=== PATIENT | male | born 1965 | race Caucasian/White ===

== ENCOUNTER 2021-03-01 12:17 | Emergency (ER) | payer BC ==
[~2021-03-01] VITALS: Ht 185.4 cm; Wt 116.0 kg
--- NOTE | 2021-03-01 12:47 | EKG ---
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
[2021-03-01 12:52] LABS: BASO # 0.1 x10^3/uL (0.0-0.2); BASO % 1 % (0-3); EOS # 0.3 x10^3/uL (0.0-0.7); EOS % 3 % (0-3); HEMATOCRIT 43.7 % (39.0-53.0); HEMOGLOBIN 15.2 g/dL (13.0-17.5); LYMPH % 33 % (24-48); MEAN CORPUSCULAR HEMOGLOBIN 30 pg (25-35); MEAN CORPUSCULAR HGB CONC 35 g/dL (31-37); MEAN CORPUSCULAR VOLUME 87 fL (79-100); MONO # 0.8 x10^3/uL (0.0-1.1); MONO % 9 % (0-9); NEUT % 54 % (31-73); PLATELET COUNT 348 x10^3/uL (140-400); RED CELL DISTRIBUTION WIDTH 13.3 % (11.5-14.5); WHITE BLOOD COUNT 9.2 x10^3/uL (4.0-11.0)
[2021-03-01 12:54] LABS: CREATININE 1.6 mg/dL (0.7-1.3); GFR 44.8; POTASSIUM 4.4 mmol/L (3.5-5.1)
--- NOTE | 2021-03-01 13:05 | PHYS DOC ---
Past History Past Medical History: Asthma Past Surgical History: Knee Replacement Smoking: Non-smoker Alcohol Use: Occasionally Drug Use: None General Adult EDM: Chief Complaint: DIZZY/LIGHT HEADED HPI: HPI: Patient is a 55-year-old male coming in for complaint of lightheadedness has been going on for several months. Patient states he has had a couple episodes over the past couple days have been worse. 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 Patient has a history of hypertension is taking lisinopril. Denies any chest pain or cough. States he is frequently diaphoretic at his baseline. Patient states that when it happened today at work he ate afterwards and said he felt slightly better. Has not had any Covid vaccines. Review of Systems: Review of Systems: All other systems within normal limits except for as noted in the HPI Allergies: Allergies: Allergies Coded Allergies Type Severity Reaction Last Updated Verified morphine Allergy Unknown 03/01/21 Yes Physical Exam: PE: Constitutional: Well developed, well nourished, no acute distress, non-toxic appearance. [] HENT: Normocephalic, atraumatic, bilateral external ears normal, nose normal. [] Eyes: PERRLA, conjunctiva normal, no discharge. [] Neck: No rigidity, supple, no stridor. [] Cardiovascular: Regular rate and rhythm, brisk cap refill [] Lungs & Thorax: Non labored symmetric respirations, no tachypnea or respiratory distress [] Abdomen: Soft, nondistended. Skin: Warm, dry, no erythema, no rash. [] Back: Unremarkable Extremities: No deformities, range of motion grossly intact, no lower extremity edema [] Neurologic: Alert and oriented X 3, no focal deficits noted. [] Psychologic: Affect normal, judgement normal, mood normal. [] Current Patient Data: Labs: Laboratory Tests Test 03/01/21 12:25 White Blood Count 9.2 x10^3/uL (4.0-11.0) Red Blood Count 5.00 x10^6/uL (4.30-5.70) Hemoglobin 15.2 g/dL (13.0-17.5) Hematocrit 43.7 % (39.0-53.0) Mean Corpuscular Volume 87 fL (79-100) Mean Corpuscular Hemoglobin 30 pg (25-35) Mean Corpuscular Hemoglobin Concent 35 g/dL (31-37) Red Cell Distribution Width 13.3 % (11.5-14.5) Platelet Count 348 x10^3/uL (140-400) Neutrophils (%) (Auto) 54 % (31-73) Lymphocytes (%) (Auto) 33 % (24-48) Monocytes (%) (Auto) 9 % (0-9) Eosinophils (%) (Auto) 3 % (0-3) Basophils (%) (Auto) 1 % (0-3) Neutrophils # (Auto) 5.0 x10^3uL (1.8-7.7) Lymphocytes # (Auto) 3.0 x10^3/uL (1.0-4.8) Monocytes # (Auto) 0.8 x10^3/uL (0.0-1.1) Eosinophils # (Auto) 0.3 x10^3/uL (0.0-0.7) Basophils # (Auto) 0.1 x10^3/uL (0.0-0.2) Sodium Level 137 mmol/L (136-145) Potassium Level 4.4 mmol/L (3.5-5.1) Chloride Level 100 mmol/L (98-107) Carbon Dioxide Level 26 mmol/L (21-32) Anion Gap 11 (6-14) Blood Urea Nitrogen 26 mg/dL (8-26) Creatinine 1.6 mg/dL (0.7-1.3) H Estimated GFR (Cockcroft-Gault) 44.8 BUN/Creatinine Ratio 16 (6-20) Glucose Level 139 mg/dL (70-99) H Calcium Level 9.0 mg/dL (8.5-10.1) Phosphorus Level Pending Magnesium Level Pending Total Bilirubin Pending Aspartate Amino Transferase (AST) Pending Alanine Aminotransferase (ALT) Pending Alkaline Phosphatase Pending BM-Aib-M-Type Natriuretic Peptide Pending Total Protein Pending Albumin Pending Albumin/Globulin Ratio Pending Vital Signs: Vital Signs Date Time Temp Pulse Resp B/P (MAP) Pulse Ox O2 Delivery O2 Flow Rate FiO2 03/01/21 12:20 97.9 100 16 143/79 100 Room Air EKG: EKG: Sinus rhythm, heart rate 93/min, left axis deviation, incomplete right bundle branch block. No previous EKG for comparison [] Radiology/Procedures: Radiology/Procedures: [] Heart Score: C/O Chest Pain: No HEART Score for Chest Pain: HEART Score for Chest Pain Response (Comments) Value History Slighlty/Non-Suspicious 0 ECG Nonspecific Repolarizatio 1 Age >45 - < 65 1 Risk Factors 1 or 2 Risk Factors 1 Troponin < Normal Limit 0 Total 3 Risk Factors: Risk Factors: DM, Current or recent (<one month) smoker, HTN, HLP, family history of CAD, obesity. Risk Scores: Score 0 - 3: 2.5% MACE over next 6 weeks - Discharge Home Score 4 - 6: 20.3% MACE over next 6 weeks - Admit for Clinical Observation Score 7 - 10: 72.7% MACE over next 6 weeks - Early Invasive Strategies Course & Med Decision Making: Course & Med Decision Making Pertinent Labs and Imaging studies reviewed. (See chart for details) [] Dragon Disclaimer: Dragon Disclaimer: This electronic medical record was generated, in whole or in part, using a voice recognition dictation system. Departure Departure: Impression: Primary Impression: Dehydration Disposition: HOME / SELF CARE / HOMELESS Condition: STABLE Referrals: [facility] SOLORZANO (PCP) Patient Instructions: Near-Syncope CLOVIS BRUNNER MD Mar 01, 2021 13:05
[2021-03-01 13:06] LABS: ALBUMIN 4.2 g/dL (3.4-5.0); ALBUMIN/GLOBULIN RATIO 1.4 (1.0-1.7); PHOSPHORUS 4.3 mg/dL (2.6-4.7); TOTAL BILIRUBIN 0.6 mg/dL (0.2-1.0); TOTAL PROTEIN 7.3 g/dL (6.4-8.2)
[2021-03-01] MEDS ORDERED: IV NORMAL SALINE 1,000ML 1,000 ML IV ONE ×2 (13:30→14:30)
[2021-03-01 14:55] LABS: BARBITURATES NEG (NEG); BENZODIAZEPINES NEG (NEG); CANNABINOIDS NEG (NEG); COCAINE NEG (NEG); METHADONE NEG (NEG); OPIATES NEG (NEG); PHENCYCLIDINE NEG (NEG)
[2021-03-01 14:59] LABS: AMPHETAMINE/METHAMPHETAMINE NEG (NEG)
[2021-03-01 15:05] LABS: BILIRUBIN,URINE NEG (NEG); CLARITY,URINE CLEAR; COLOR,URINE YELLOW; GLUCOSE,URINE NEG (NEG); NITRITE,URINE NEG (NEG); UROBILINOGEN,URINE 0.2 mg/dL (0.2 mg/dL)
[2021-03-01 15:06] LABS: BACTERIA,URINE 0 /HPF (0-FEW); RBC,URINE 0 /HPF (0-2); WBC,URINE 0 /HPF (0-4)
[2021-03-01 16:30] VITALS: BP 103/55
== END 2021-03-01 17:27 | disposition home or self-care (01) ==
LOC: ER 12:17
DX: E86.0 Dehydration (principal); J45.909 Unspecified asthma, uncomplicated; I10 Essential (primary) hypertension; Z20.822 Contact with and (suspected) exposure to COVID-19; Z88.5 Allergy status to narcotic agent
CPT/HCPCS: 80053; 80307; 81001; 83735; 83880; 84100; 84484; 85025; 85379; 93005; 96360; 96361; 99284; C9803; J7030; U0003

== ENCOUNTER 2021-03-04 19:54 | Emergency (ER) | payer BC ==
[~2021-03-04] VITALS: Ht 185.4 cm; Wt 116.0 kg
[2021-03-04] MEDS ORDERED: IV NORMAL SALINE 1,000ML 1,000 ML IV ONE (20:15)
--- NOTE | 2021-03-04 20:17 | PHYS DOC ---
Past History Past Medical History: Asthma (LYNN OWEN APRN) Past Surgical History: Knee Replacement (LYNN OWEN APRN) Smoking: Non-smoker Alcohol Use: Occasionally Drug Use: None (LYNN OWEN APRN) General Adult EDM: Chief Complaint: WEAKNESS/GENERALIZED HPI: HPI: Patient is a 55-year-old male being seen in the ER for lightheadedness and generalized weakness that started 3 months ago. Patient reports that he has been having intermittent generalized chest pain for 3 months also. Patient was seen on March 01 in this ER for similar symptoms and had a negative work-up. He reports that he was told that he was dehydrated. Patient states "I am not dehydrated today". Patient states that his symptoms have not improved from his last visit in the ER. He denies any confusion but states that he "put trash in the refrigerator today". He has not followed up with his primary care provider. He reports that he was taken off his lisinopril prior to his ER visit on the second, he states that he is unsure of why Dr. Shields discontinued his lisinopril. His blood pressure is elevated in the ER today. Patient reports that Dr. Jarrett is also scheduled him for an echocardiogram but he does feels like "he is not going to make it to that appointment". Patient appears very anxious. Patient denies any focal weaknesses, syncope, nausea, vomiting, fevers, chest pain, shortness of breath. (LYNN OWEN APRN) Review of Systems: Review of Systems: 14 body systems of the review of systems have been reviewed. See HPI for pertinent positive and negative responses, otherwise all other systems are negative, nonpertinent or noncontributory (LYNN OWEN APRN) Allergies: Allergies: Allergies Coded Allergies Type Severity Reaction Last Updated Verified morphine Allergy Unknown 03/01/21 Yes (LYNN OWEN APRN) Physical Exam: PE: Constitutional: Well developed, well nourished, no acute distress, non-toxic appearance. [] HENT: Normocephalic, atraumatic, bilateral external ears normal, oropharynx moist, no oral exudates, nose normal. [] Eyes: PERRLA, 4 mm pupils bilaterally, EOMI, conjunctiva normal, no discharge. [] Neck: Normal range of motion, no stridor Cardiovascular:Heart rate regular rhythm, no murmur [] Lungs & Thorax: Bilateral breath sounds clear to auscultation [] Abdomen: Bowel sounds normal, soft, no tenderness, no masses, no pulsatile mas ses. [] Skin: Warm, dry, no erythema, no rash. [] Back: Normal range of motion Extremities: No tenderness, no cyanosis, no clubbing, ROM intact, no edema. [] Neurologic: Alert and oriented X 3, normal motor function, normal sensory function, no focal deficits noted. Patient able to bear weight and ambulate with steady gait. [] Psychologic: Affect normal, judgement normal, mood normal. [] (LYNN OWEN APRN) Current Patient Data: Labs: Laboratory Tests Test 03/04/21 20:16 White Blood Count 8.0 x10^3/uL Red Blood Count 4.67 x10^6/uL Hemoglobin 14.1 g/dL Hematocrit 40.4 % Mean Corpuscular Volume 87 fL Mean Corpuscular Hemoglobin 30 pg Mean Corpuscular Hemoglobin Concent 35 g/dL Red Cell Distribution Width 13.2 % Platelet Count 306 x10^3/uL Neutrophils (%) (Auto) 40 % Lymphocytes (%) (Auto) 42 % Monocytes (%) (Auto) 11 % Eosinophils (%) (Auto) 6 % Basophils (%) (Auto) 1 % Neutrophils # (Auto) 3.2 x10^3uL Lymphocytes # (Auto) 3.4 x10^3/uL Monocytes # (Auto) 0.9 x10^3/uL Eosinophils # (Auto) 0.5 x10^3/uL Basophils # (Auto) 0.0 x10^3/uL Sodium Level 142 mmol/L Potassium Level 4.4 mmol/L Chloride Level 105 mmol/L Carbon Dioxide Level 27 mmol/L Anion Gap 10 Blood Urea Nitrogen 21 mg/dL Creatinine 0.9 mg/dL Estimated GFR (Cockcroft-Gault) 87.0 BUN/Creatinine Ratio 23 Glucose Level 118 mg/dL Calcium Level 9.2 mg/dL Total Bilirubin 0.4 mg/dL Aspartate Amino Transf (AST/SGOT) 22 U/L Alanine Aminotransferase (ALT/SGPT) 34 U/L Alkaline Phosphatase 118 U/L Troponin I Quantitative < 0.017 ng/mL Total Protein 7.2 g/dL Albumin 3.9 g/dL Albumin/Globulin Ratio 1.2 Current Medications Medications (Trade) Dose Ordered Sig/Rufina Route PRN Reason Start Time Stop Time Status Last Admin Dose Admin Sodium Chloride 1,000 ml @ 1,000 mls/hr 1X ONCE IV 03/04/21 20:15 03/04/21 21:14 DC 03/04/21 20:28 Clonidine HCl (Catapres) 0.2 mg 1X ONCE PO 03/04/21 20:30 03/04/21 20:31 DC 03/04/21 20:45 (LYNN OWEN APRN) EKG: EKG: EKG performed by ER staff at 2029 shows sinus rhythm with incomplete right bundle branch block, no STEMI as read by Dr. Albarran. [] (LYNN OWEN APRN) Radiology/Procedures: Radiology/Procedures: [] (LYNN OWEN APRN) Radiology/Procedures: [place] [address] IMAGING REPORT Signed PATIENT: SILVIA CRESPO AACCOUNT: [id number] : 1965 LOCATION: ER AGE: 55 SEX: M EXAM STATUS: REG ER ORD. PHYSICIAN: LYNN OWEN APRN REASON: lightheaded, occasional cp PROCEDURE: CHEST AP ONLY XR CHEST 1V History: Reason: lightheaded, occasional cp / Spl. Instructions: / History: Comparison: None. Findings: Mild bibasilar linear atelectasis. No consolidation or pleural effusion. Normal heart size. No pneumothorax. Impression: 1. No acute cardiopulmonary process. Electronically signed by: Brad Munoz DO (03/04/2021 10:07 PM) [facility] DICTATED AND SIGNED BY: BRAD MUNOZ DO DATE: 03/04/212204 CC: EDDIE SHIELDS MD; LYNN OWEN APRN ~MTH0 [address] [address] IMAGING REPORT Signed PATIENT: SILVIA CRESPO AACCOUNT: [id number] : 1965 LOCATION: ER AGE: 55 SEX: M EXAM STATUS: REG ER ORD. PHYSICIAN: LYNN OWEN APRN REASON: lightheaded, weakness PROCEDURE: CT HEAD WO CONTRAST CT HEAD/BRAIN WO History: Reason: lightheaded, weakness / Spl. Instructions: / History: Comparison: None. Technique: Noncontrast CT imaging was performed of the head. Exposure: One or more of the following individualized dose reduction techniques were utilized for this examination: 1. Automated exposure control 2. Adjustment of the mA and/or kV according to patient size 3. Use of iterative reconstruction technique. Findings: No intracranial hemorrhage. No mass effect. No hydrocephalus. Extra-axial spaces are unremarkable. Imaged orbits are unremarkable. Imaged paranasal sinuses and mastoid air cells are clear. No acute calvarial fracture. Impression: 1. No acute intracranial abnormality. Electronically signed by: Brad Munoz DO (03/04/2021 10:16 PM) [facility] DICTATED AND SIGNED BY: BRAD MUNOZ DO DATE: 03/04/212213 CC: EDDIE SHIELDS MD; PATRICE ALBARRAN MD; LYNN OWEN APRN ~MTH0 0 (PATRICE ALBARRAN MD) Heart Score: C/O Chest Pain: No Risk Factors: Risk Factors: DM, Current or recent (<one month) smoker, HTN, HLP, family history of CAD, obesity. Risk Scores: Score 0 - 3: 2.5% MACE over next 6 weeks - Discharge Home Score 4 - 6: 20.3% MACE over next 6 weeks - Admit for Clinical Observation Score 7 - 10: 72.7% MACE over next 6 weeks - Early Invasive Strategies (LYNN OWEN APRN) Course & Med Decision Making: Course & Med Decision Making Pertinent Labs and Imaging studies reviewed. (See chart for details) [] Patient is a 55-year-old male being seen in the ER for lightheadedness and generalized weakness that started 3 months ago. Patient was recently worked up in the ER 3 days prior and had a negative work-up. Patient has yet to follow-up with his primary care provider regarding these chronic complaints. Patient was recently discontinued from lisinopril per Dr. Shields. Work-up in the ER consisted of blood work, EKG, chest x-ray, UA, CT scan of head. Patient was treated with a liter of normal saline. Patient's blood pressure treated in the ER. Blood work unremarkable. Chest X ray, CT scan of head, UA pending at this time. I discussed patient's case with Dr. Albarran. Care will be transferred to him at this time 2209. (LYNN OWEN APRN) Course & Med Decision Making Patient keep follow-up with Dr. Shields. Take a daily aspirin. Follow-up Covid results. Return if any concerns. Self isolate until COVID results known. Impression" 1. Weakness 2. Viral syndrome (PATRICE ALBARRAN MD) Dragon Disclaimer: Dragon Disclaimer: This electronic medical record was generated, in whole or in part, using a voice recognition dictation system. (LYNN OWEN APRN) Departure Departure: Referrals: NON,STAFF (PCP) Attending Signature Attending Signature I have participated in the care of this patient and I have reviewed and agree with all pertinent clinical information above including history, exam, and recommendations. (PATRICE ALBARRAN MD) LYNN OWEN APRN Mar 04, 2021 20:17 PATRICE ALBARRAN MD Mar 04, 2021 23:00
[2021-03-04] MEDS ORDERED: cloNIDine HCL 0.1 MG TABLET PO ONE (20:30)
[2021-03-04 20:50] LABS: BASO % 1 % (0-3); EOS # 0.5 x10^3/uL (0.0-0.7); EOS % 6 % (0-3); HEMATOCRIT 40.4 % (39.0-53.0); HEMOGLOBIN 14.1 g/dL (13.0-17.5); LYMPH # 3.4 x10^3/uL (1.0-4.8); LYMPH % 42 % (24-48); MEAN CORPUSCULAR HEMOGLOBIN 30 pg (25-35); MEAN CORPUSCULAR HGB CONC 35 g/dL (31-37); MEAN CORPUSCULAR VOLUME 87 fL (79-100); MONO # 0.9 x10^3/uL (0.0-1.1); MONO % 11 % (0-9); NEUT # 3.2 x10^3uL (1.8-7.7); NEUT % 40 % (31-73); PLATELET COUNT 306 x10^3/uL (140-400); RED BLOOD COUNT 4.67 x10^6/uL (4.30-5.70); RED CELL DISTRIBUTION WIDTH 13.2 % (11.5-14.5)
[2021-03-04 20:54] LABS: CALCIUM 9.2 mg/dL (8.5-10.1); CREATININE 0.9 mg/dL (0.7-1.3); POTASSIUM 4.4 mmol/L (3.5-5.1)
[2021-03-04 21:00] LABS: ALBUMIN 3.9 g/dL (3.4-5.0); ALBUMIN/GLOBULIN RATIO 1.2 (1.0-1.7); TOTAL BILIRUBIN 0.4 mg/dL (0.2-1.0); TOTAL PROTEIN 7.2 g/dL (6.4-8.2)
[2021-03-04 22:08] LABS: BACTERIA,URINE 0 /HPF (0-FEW); BILIRUBIN,URINE NEG (NEG); CLARITY,URINE CLEAR; COLOR,URINE YELLOW; GLUCOSE,URINE NEG (NEG); NITRITE,URINE NEG (NEG); RBC,URINE 0 /HPF (0-2); UROBILINOGEN,URINE 0.2 mg/dL (0.2 mg/dL); WBC,URINE 0 /HPF (0-4)
--- NOTE | 2021-03-04 22:10 | RAD ---
XR CHEST 1V History: Reason: lightheaded, occasional cp / Spl. Instructions: / History: Comparison: None. Findings: Mild bibasilar linear atelectasis. No consolidation or pleural effusion. Normal heart size. No pneumo thorax. Impression: 1. No acute cardiopulmonary process. Electronically signed by: Brad Iqbal DO (03/04/2021 10:07 PM) [facility] [place]
--- NOTE | 2021-03-04 22:18 | RAD ---
CT HEAD/BRAIN WO History: Reason: lightheaded, weakness / Spl. Instructions: / History: Comparison: None. Technique: Noncontrast CT imaging was performed of the head. Exposure: One or more of the following individualized dose reduction techniques were utilized for thi s examination: 1. Automated exposure control 2. Adjustment of the mA and/or kV according to patient size 3. Use of iterative reconstruction technique. Findings: No intracranial hemorrhage. No mass effect. No hydrocephalus. Extra-axial spaces are unremarkable. Imaged orbits are unremarkable. Imaged paranasal sinuses and mastoid air cells are clear. No acute ca lvarial fracture. Impression: 1. No acute intracranial abnormality. Electronically signed by: Brad Iqbal DO (03/04/2021 10:16 PM) [facility]
[2021-03-04 22:38] VITALS: BP 111/78
--- NOTE | 2021-03-04 23:16 | EKG ---
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
== END 2021-03-04 23:47 | disposition home or self-care (01) ==
LOC: ER 19:54
DX: B34.9 Viral infection, unspecified (principal); R53.1 Weakness; R42 Dizziness and giddiness; J45.909 Unspecified asthma, uncomplicated; Z88.5 Allergy status to narcotic agent
CPT/HCPCS: 36415; 70450; 71045; 80053; 81001; 84484; 85025; 93005; 96360; 99285; J7030